=== PATIENT | male | born 1980 | race African-American/Black ===

== ENCOUNTER 2017-09-28 15:52 | Emergency (ER) | payer OTHER ==
[~2017-09-28] VITALS: Ht 170.2 cm; Wt 95.3 kg
[2017-09-28] MEDS ORDERED: LIDOCAINE 1% INJ 50 ML MDV IJ ONE ×2 (16:16→16:30)
[2017-09-28] MEDS ORDERED: HYDROCODONE/APAP 5/325MG 1 EACH TABLET ONE ×2 (16:18→17:49)
[2017-09-28] MEDS ORDERED: TDAP [DIPH/PERTUSSIS/TET] 0.5 ML VIAL IM ONE ×2 (16:18→16:30)
[2017-09-28] MEDS ORDERED: CEPHALEXIN MONOHYDRATE 500 MG CAPSULE PO ONE ×2 (16:18→16:30)
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
[2017-09-28] MEDS ORDERED: HYDROCODONE/APAP 5/325MG 1 EACH TABLET PO ONE ×2 (16:30→18:00)
[2017-09-28 17:57] VITALS: BP 150/86
--- NOTE | 2017-09-28 17:57 | NUR ---
Patient discharged to home in stable condition. Written and verbal after care instructions given. Patient verbalizes understanding of instruction. AWAITING TO PICK HIM UP.
== END 2017-09-28 17:58 | disposition home or self-care (01) ==
LOC: ER 15:55
DX: S67.190A Crushing injury of right index finger, initial encounter (principal); F17.200 Nicotine dependence, unspecified, uncomplicated; W23.0XXA Caught, crushed, jammed, or pinched between moving objects, initial encounter; Y93.89 Activity, other specified; Y92.89 Other specified places as the place of occurrence of the external cause; Y99.0 Civilian activity done for income or pay
CPT/HCPCS: 11730; 73140; 90471; 90715; 99284; 99406; A4606; A6402; J3490; Z7610